=== PATIENT | female | born 1980 | race Caucasian/White ===

== ENCOUNTER 2018-12-29 05:56 | Day surgery (SDC) | payer BC ==
[~2018-12-29] VITALS: Ht 162.6 cm; Wt 83.9 kg
[~2018-12-29 05:56] MED LIST: BUSPAR10 MG PO; TIROSINT100 MCG PO
[2018-12-29 06:27] LABS: BASOPHILS 0.1 % (0-2); EOSINOPHILS 1.6 % (0-7); HEMATOCRIT 39.9 % (36.0-48.0); HEMOGLOBIN 13.8 g/dL (12-16); IMMATURE GRANULOCYTES 0.3 % (0-5); LYMPHOCYTES 29.9 % (15-50); MCH 30.9 pg (26.0-34.0); MCHC 34.6 g/dL (31.0-37.0); MCV 89.5 fL (80.0-100.0); MEAN PLATELET VOLUME 9.2 fL (7.4-10.4); MONOCYTES 6.7 % (2-11); NEUTROPHILS 61.4 % (40-80); PLATELET COUNT 210 10x3/uL (130-400); RBC 4.46 10x6/uL (4.00-5.40); RDW 12.8 % (11.5-14.5); WBC 6.9 10x3/uL (4.8-10.8)
[2018-12-29 06:34] LABS: CALC OSMOLALITY 278 mosm/kg (275-300); CALCIUM 8.8 mg/dL (8.5-10.1); CHLORIDE - SERUM 103 mmol/L (98-107); CREATININE - SERUM 0.7 mg/dL (0.6-1.3); GLUCOSE 100 mg/dL (74-106); POTASSIUM - SERUM 3.5 mmol/L (3.5-5.1); SODIUM 141 mmol/L (136-145); UREA NITROGEN 8 mg/dL (7-18); eGFR NON AFRICAN AMERICAN > 90 mL/min (90-120)
[2018-12-29 07:10] VITALS: BP 123/71; Ht 162.6 cm; Wt 83.9 kg
[2018-12-29 07:23] LABS: HCG URINE NEGATIVE (NEGATIVE)
[2018-12-29] MEDS ORDERED: HYDROCODON-ACE1 EA10 PO (08:45)
--- NOTE | 2019-01-02 10:07 | OP ---
PATIENT NAME: ELEANOR PIERRE MEDICAL RECORD: [id number] :82 LOCATION:D.OPS ADMISSION DATE: SURGEON: CESAR LAYTON MD DATE OF OPERATION: 12/29/2018 PREOPERATIVE DIAGNOSES: 1. Accessory right breast tissue. 2. Hypothyroidism. POSTOPERATIVE DIAGNOSES: 1. Accessory right breast tissue. 2. Hypothyroidism. PROCEDURE: Excision of accessory right axillary breast tissue. SURGEON: Cesar Layton MD REPORT OF PROCEDURE: The patient's right axilla was prepped and draped in sterile fashion. A transverse incision was made in a crease in the patient's right axilla. Electrocautery was used to dissect through the subcutaneous tissues. We immediately encountered this breast tissue, which came up almost to the skin itself. We excised this breast tissue removing a large chunk of it trying to make it more normal in appearance. We did not completely excise all the breast tissue for fear of causing deformity and scarring. Once this section of breast tissue was removed, it measured out a little over 3 cm in greatest diameter. The wound was then irrigated out with normal saline and care was taken to ensure there was no sign of any active bleeding. The subcutaneous tissues were then reapproximated with interrupted 3-0 Vicryl and the skin was closed with running subcutaneous 5-0 Monocryl. A total of 10 mL of 0.25% Marcaine with epinephrine was infused into the surrounding tissues, and the wound was dressed appropriately. COMPLICATIONS: None. CONDITION: Stable. ANESTHESIA: General endotracheal and local. BLOOD LOSS: Minimal. TRANSINT:[id number] Voice Confirmation ID: [id number] DOCUMENT ID: [id number] CESAR LAYTON MD at 1007 CC: GORDON HERNÁNDEZ and MARY PEREZ MD [id number] DICTATION DATE: 12/29/18 0856 ASSISTANT DISTRIBUTION MANAGER: 12/29/18 1046 [facility] 12/29/18 [id number] [place] [address]
== END 2018-12-29 10:45 | disposition home or self-care (01) ==
LOC: D.OPS 05:56
PROVIDERS: ATTEND Surgery
DX: N62 Hypertrophy of breast (principal)